=== PATIENT | female | born 1980 | race Caucasian/White ===

== ENCOUNTER 2016-11-05 18:13 | Emergency (ER) | payer OTHER ==
[~2016-11-05] VITALS: Ht 165.1 cm; Wt 89.1 kg
[2016-11-05] MEDS ORDERED: SODIUM CHLORIDE 0.9% 1,000ML IVBOLUS ONE ×2 (18:30→20:00)
[2016-11-05] MEDS ORDERED: ALBUTEROL/IPRATROPIUM 2.5MG/0.5MG, 3 ML NPPB ONE (18:30)
[2016-11-05] MEDS ORDERED: SODIUM CHLORIDE FLUSH 10ML SYR IVF ONE (18:30)
[2016-11-05] MEDS ORDERED: ALBUTEROL/IPRATROPIUM 2.5MG/0.5MG, 3 ML ONE (18:40)
[2016-11-05] MEDS ORDERED: PLEASE ENTER ALLERGIES MC SCH ×2 (19:00)
[2016-11-05 19:17] LABS: ASPARTATE AMINO TRANSFERASE 14 U/L (15-37); BLOOD UREA NITROGEN 8 mg/dL (7-18)
[2016-11-05 19:23] LABS: IS PT STATUS REG ER OR PRE ER? YES
[2016-11-05 19:35] LABS: RAPID INFLUENZA A Negative (Negative); RAPID INFLUENZA B Negative (Negative)
[2016-11-05 20:52] VITALS: BP 130/80
[2016-11-05] MEDS ORDERED: OMNIPAQUE 350 MG/ML, 100ML BOTTLE ONE (21:49)
== END 2016-11-05 21:53 | disposition home or self-care (01) ==
LOC: ED 18:43
DX: J20.9 Acute bronchitis, unspecified (principal); R09.02 Hypoxemia; E86.0 Dehydration
CPT/HCPCS: 36415; 71010; 71275; 80053; 83605; 83880; 84484; 85025; 85379; 87040; 87400; 93005; 94640; 96360; 96361; 99285; J7030; J7512; Q9967; J7620

== ENCOUNTER → 2016-11-08 | Outpatient (CLI) | payer OTHER | END | disposition home or self-care (01) | LOC: CVU 11:57 | PROVIDERS: ATTEND Internal Medicine Cardiovascular Disease | DX: I34.0 Nonrheumatic mitral (valve) insufficiency (principal); I37.1 Nonrheumatic pulmonary valve insufficiency | CPT/HCPCS: 71020; 93306 ==